=== PATIENT | female | born 1975 | race Hispanic/Latino ===

== ENCOUNTER 2019-09-11 13:01 | Outpatient (CLI) | payer BC ==
--- NOTE | 2019-09-11 15:17 | ULT ---
THYROID ULTRASOUND: INDICATION: Abnormal thyroid test. FINDINGS: Both lobes show a homogeneous echotexture. Both lobes have normal size and appearance. Right lobe m easures 4.7 x 2.1 x .8 cm. The left lobe measures 4.7 x 1.5 x 1.4 cm. Two small hypoechoic nodules are seen in the mid right lobe, these are adjacent to one another. One measures approximately 3-6 mm and the other measures approximately 3-4 mm. A tiny 3 mm nodule in the mid left lobe. IMPRESSION: Tiny bilateral thyroid nodules. Suggest followup thyroid ultrasound in 6-12 months to assess stabili ty. POS: [facility]
== END 2019-09-11 13:02 | disposition home or self-care (01) ==
LOC: SCSULT 13:01
PROVIDERS: ATTEND Family Medicine
DX: R94.6 Abnormal results of thyroid function studies (principal); E04.2 Nontoxic multinodular goiter
CPT/HCPCS: 76536